=== PATIENT | female | born 1965 | race Two or more races ===

== ENCOUNTER → 2024-07-08 | Outpatient (CLI) | payer BC, SELFPAY ==
[2024-07-08 16:00] LABS: Basophils % (Auto) 0 % (0-2.5); Eosinophils # (Auto) 0.1 Thou/mm3 (0.0-0.5); Eosinophils % (Auto) 1 % (0-10); Hematocrit 32.9 % (36.0-46.0); Immature Granulocytes % (Auto) 0 % (0-0); Immature Granulocytes Auto 0.02 Thou/mm3 (0.00-0.00); Lymphocytes # (Auto) 0.9 Thou/mm3 (1.0-4.8); Lymphocytes % (Auto) 19 % (10-50); Mean Corpuscular HGB Conc 33.4 g/dl (31.0-37.0); Mean Corpuscular Hemoglobin 30.7 pg (25.0-35.0); Mean Corpuscular Volume 92 fL (80-100); Monocytes # (Auto) 0.4 Thou/mm3 (0.0-0.8); Monocytes % (Auto) 9 % (0-12); Neutrophils # (Auto) 3.5 Thou/mm3 (1.8-7.7); Neutrophils % (Auto) 71 % (37-80); Nucleated Red Blood Cell % 0 /100 WBC (0); Platelet Count 235 Thou/mm3 (140-440); RDW Standard Deviation 41.8 fL (36.4-46.3); Red Blood Count 3.58 Miln/mm3 (4.00-5.20); White Blood Count 4.9 Thou/mm3 (3.6-11.0)
[2024-07-08 16:14] LABS: Alanine Aminotransferase 19 U/L (10-49); Albumin, Serum 4.3 gm/dL (3.4-4.8); Albumin/Globulin Ratio 1.7 (1.2-2.2); Alkaline Phosphatase 85 U/L (46-116); Anion Gap 4 (7-16); Aspartate Amino Transferase 19 U/L (0-34); BUN/Creatinine Ratio 24 Ratio (12-20); Bilirubin,Total 1.1 mg/dL (0.3-1.2); Blood Urea Nitrogen 19 mg/dL (9-23); Calcium 9.5 mg/dL (8.3-10.6); Calcium (Corrected) 9.5 mg/dL (8.5-10.1); Carbon Dioxide 27.5 mMol/L (20.0-31.0); Chloride 108 mMol/L (98-107); Creatinine (Component) 0.8 mg/dL (0.6-1.3); Globulin 2.6 gm/dL (2.3-3.5); Glucose 98 mg/dL (74-106); Osmolality,Calculated 279 (275-295); Potassium 3.5 mMol/L (3.4-5.1); Sodium 139 mMol/L (136-145); Total Protein 6.9 gm/dL (5.7-8.2); eGFR > 60 See Note
[2024-07-08 16:17] LABS: Folate 13.45 ng/mL (>5.38); Vitamin B12 500 pg/mL (211-911)
[2024-07-08 16:34] LABS: Total Iron Binding Capacity 328 mcg/dL (250-425)
[2024-07-08 16:44] LABS: Iron 83 mcg/dL (50-170)
== END | disposition home or self-care (01) ==
LOC: COPL 15:07
PROVIDERS: PCP Family Medicine; Referring Provider Family Medicine; Visit Provider Family Medicine
DX: G62.9 Polyneuropathy, unspecified (principal)
CPT/HCPCS: 36415; 80053; 82607; 82746; 83540; 83550; 85025

== ENCOUNTER → 2024-08-10 | Outpatient (CLI) | payer BC, SELFPAY ==
--- NOTE | 2024-08-10 12:00 | XR_ITS ---
Examination: Bone densitometry Date and time of exam:August 10, 2024 1224 hours INDICATIONS: Menopause age 48 right shoulder fracture history uterine carcinoma post chemotherapy radiation therapy Technique: Lumbar spine and hip total bone mineralization values of an calculated. Peak reference and age match control results have been displayed. Findings: Lumbar spine total bone mineralization is0.976 gm/cm2. This is 0.6 standard deviations below peak reference. This is 0.8 standard deviations above age-matched controls. Hip total bone mineralization is 0.947 gm/cm2 This is 0.0 standard deviations at peak reference. This is 1.1 standard deviations above age-matched controls Impression: There is normal mineralization based on lumbar spine measurements. There is normal mineralization based on hip measurements Lumbar mineralization is decreased 2.9% compared with June 05, 2017 Hip mineralization is decreased 0.2% compared with June 05, 2017
== END | disposition home or self-care (01) ==
PROVIDERS: PCP Family Medicine; Referring Provider Family Medicine; Visit Provider Family Medicine
DX: Z13.820 Encounter for screening for osteoporosis (principal)
CPT/HCPCS: 77080

== ENCOUNTER 2024-10-19 15:34 | Outpatient (RCR) | payer BC, SELFPAY ==
[2024-10-18 16:24] LABS: Basophils % (Auto) 1 % (0-2.5); Eosinophils # (Auto) 0.1 Thou/mm3 (0.0-0.5); Eosinophils % (Auto) 2 % (0-10); Hematocrit 34.3 % (36.0-46.0); Hemoglobin 11.6 g/dL (12.0-16.0); Immature Granulocytes % (Auto) 1 % (0-0); Immature Granulocytes Auto 0.02 Thou/mm3 (0.00-0.00); Lymphocytes % (Auto) 24 % (10-50); Mean Corpuscular HGB Conc 33.8 g/dl (31.0-37.0); Mean Corpuscular Hemoglobin 29.7 pg (25.0-35.0); Mean Corpuscular Volume 88 fL (80-100); Monocytes # (Auto) 0.3 Thou/mm3 (0.0-0.8); Monocytes % (Auto) 7 % (0-12); Neutrophils # (Auto) 2.6 Thou/mm3 (1.8-7.7); Neutrophils % (Auto) 66 % (37-80); Nucleated Red Blood Cell % 0 /100 WBC (0); Platelet Count 199 Thou/mm3 (140-440); RDW Standard Deviation 42.3 fL (36.4-46.3); White Blood Count 3.9 Thou/mm3 (3.6-11.0)
[2024-10-18 16:45] LABS: Alanine Aminotransferase 21 U/L (10-49); Albumin, Serum 4.4 gm/dL (3.4-4.8); Albumin/Globulin Ratio 1.5 (1.2-2.2); Alkaline Phosphatase 100 U/L (46-116); Anion Gap 8 (7-16); Aspartate Amino Transferase 24 U/L (0-34); BUN/Creatinine Ratio 27 Ratio (12-20); Bilirubin,Total 1.2 mg/dL (0.3-1.2); Blood Urea Nitrogen 19 mg/dL (9-23); Calcium 9.6 mg/dL (8.3-10.6); Calcium (Corrected) 9.6 mg/dL (8.5-10.1); Chloride 107 mMol/L (98-107); Creatinine (Component) 0.7 mg/dL (0.6-1.3); Glucose 80 mg/dL (74-106); Osmolality,Calculated 282 (275-295); Potassium 3.6 mMol/L (3.4-5.1); Sodium 141 mMol/L (136-145); Total Protein 7.4 gm/dL (5.7-8.2); eGFR > 60 See Note
--- NOTE | 2024-10-31 15:41 | CTCFLWUP_ITS ---
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 Unfortunately Taxol was not given for last 2 cycles due to peripheral neuropathy (11/26/2023 - 03/11/2024). Ms. 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 pMMR, HER2 overexpressed 3+, ER/OK negative S/p hysterectomy and bilateral salpingo-oophorectomy (09/03/2023) TREATMENT HISTORY: Care?Plan Start?Date Cycle Day Intent CARBOplatin?AUC?6;?PACLitaxel?175 11/26/2023 1 21 Curative?(adjuvant) HISTORY OF PRESENT ILLNESS: Ms. Schneider is a 59-year-old Danish-speaking female with following oncology history. 06/11/2023: Ms. Schneider had pelvic ultrasound done to evaluate the cause for postmenopausal bleeding 08/08/2023: Ms. Schneider had endometrial biopsy? 08/28/2023: CT scan of the chest abdomen and pelvis with IV contrast 09/03/2023: Ms. Schneider had total hysterectomy and bilateral salpingo-oophorectomy 10/20/2023: PET/CT scan 11/26/2023?03/11/2024: The patient had 6 cycles of adjuvant chemotherapy. For first 4 cycles she had Taxol and carboplatin. Taxol was not given for last 2 cycles due to peripheral neuropathy.. 03/29/2024 - 05/03/2024: Ms. Schneider received 5000 cGy of radiation therapy to the pelvis. 04/09/2024: CA125 is 12.0 05/10/2024: CT scan of the chest with contrast OTHER MEDICAL HISTORY/CONDITIONS: UTRINE?CA???COVID HYSTRECTOMY???ROTATOR?CUFF ?Clone Other Med Hx? FAMILY HISTORY: Mother:?COLON?-?dx?age?74 Sibling:?BREAST?SISTER ?Clone Family Hx? SOCIAL HISTORY: Occupational?History:?[employer]. Education?Level:?College Graduate, 2 year degree Marital?Status:? 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 MEDICATIONS: 1. Antifungal (clotrimazole) - 1 % 5 mg APPLY DIALY OVER AFFECTED AREAS 2. gabapentin - 300 mg 1 Capsule Daily 3. IBU - 800 mg 1 tab As directed 4. prednisoLONE - 5 mg 1 tab Daily?Palabra Meds? Medications Last Reconciled by Nancy Ochoa MA on 10/19/2024 ALLERGIES: No Known Drug Allergies REVIEW OF SYSTEMS: A complete 14-point review of systems was performed and is negative except as noted in interval history. PHYSICAL EXAMINATION: VITAL SIGNS: Temperature?98.2, B/P?130/82, Oxygen?Saturation?95% Weight?162?lbs (Change?since?10/18/24:?-3.2?lbs) PAIN: 0 - No pain ECOG Performance Status: 0 - Asymptomatic and fully active GENERAL APPEARANCE: Appears well, in no apparent distress, appropriately interactive. HEENT: Normocephalic, no temporal wasting, normal conjunctiva, no scleral icterus, normal hearing, lips without lesions, neck normal range of motion. CARDIOVASCULAR: Not assessed. PULMONARY: Normal respiratory effort, no respiratory distress or use of accessory muscles, speaking in full sentences, no tachypnea. EXTREMITIES: No pedal edema or cyanosis. SKIN: Normal skin appearance. NEUROLOGIC: Alert and oriented x4. PSHYCHIATRIC: Appropriate affect, mood normal, behavior normal, intact thought and speech. LABORATORY DATA: I have personally reviewed and interpreted each of the patient?s relevant lab tests, abnormal findings are below: Date 07/08/24 10/18/24 ??WHITE?BLOOD?COUNT?(Thou/mm3) ? 3.9 ??RED?BLOOD?COUNT?(Miln/mm3) ? 3.90?L ??HEMOGLOBIN?(gm/dl) ? 11.6?L ??HEMATOCRIT?(%) ? 34.3?L ??PLATELET?COUNT?(Thou/mm3) ? 199 ??NEUTROPHILS?%,?AUTO?(%) ? 66 ??LYMPH?%,?AUTO?(%) ? 24 ??NEUTROPHILS,?AUTO?(Thou/mm3) ? 2.6 ??GLUCOSE,RANDOM?(mg/dL) 98 80 ??BLOOD?UREA?NITROGEN?(mg/dL) 19 19 ??CREATININE?(mg/dL) 0.80 0.70 ??SODIUM?(mmol/L) 139 141 ??POTASSIUM?(mmol/L) 3.5 3.6 ??CHLORIDE?(mmol/L) 108?H 107 ??CrCl?(CandG)?(ml/min) 71.68 83.18 ??AST/SGOT?(Unit/L) 19 24 ??ALT/SGPT?(Unit/L) 19 21 ??ALKALINE?PHOSPHATASE?(Unit/L) 85 100 ??BILIRUBIN,?TOTAL?(mg/dL) 1.1 1.2 ??PROTEIN?TOTAL?(gm/dl) 6.9 7.4 ??ALBUMIN,?SERUM?(gm/dl) 4.3 4.4 ??GLOBULIN?(gm/dl) 2.6 3.0 ??ALBUMIN/GLOBULIN?RATIO 1.7 1.5 ??CALCIUM,?SERUM?(mg/dL) 9.5 9.6 ??CALCIUM?SERUM?(CORRECTED)?(mg/dL) 9.5 9.6 ??CA?125?(O*)?(Unit/mL) ? 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 pMMR, HER2 overexpressed 3+, ER/OK negative S/p hysterectomy and bilateral salpingo-oophorectomy (09/03/2023) Status post 6 cycles of Taxol and carboplatin chemotherapy. Unfortunately Taxol was not given for last 2 cycles due to peripheral neuropathy (11/26/2023 - 03/11/2024). Ms. Schneider had 5000 cGy radiation to the pelvis (03/29/2024 - 05/03/2024) Previous CT scans done on 08/28/2023 showed multiple small pulmonary nodules CT scan on 05/10/2024 shows bilateral lungs clear and showed fatty liver infiltration and benign hepatic cyst but no cancer seen CBC CMP CT scan chest abdomen pelvis with IV contrast to evaluate for recurrence RETURN TO CLINIC: I will see her back in the clinic in 2 months. BILLING AND COMPLIANCE: I reviewed external records from providers outside my specialty as summarized above. I spent a total of 50 minutes on this patient?s care on the day of their visit excluding time spent related to any billed procedures. This time includes time spent with the patient as well as time spent documenting in the medical record, reviewing patients records and tests, obtaining history, placing orders, communicating with other healthcare professionals, counseling the patient, family or caregiver, and/or care coordination for the diagnoses above. Electronically Signed by: Evgeny Conner MD T: 3:39 PM CC: PCP: Sita Mack Referring: Sita Mack This document was completed utilizing speech recognition software. Grammatical errors, random word insertions, pronoun errors, and incomplete sentences are an occasional consequence of this system due to software limitations, ambient noise, and hardware issues. Any formal questions or concerns about the content, text or information contained within the body of this dictation should be directly addressed to the provider for clarification.
== END 2024-10-22 23:59 | disposition home or self-care (01) ==
LOC: SCTC 15:34
PROVIDERS: PCP Family Medicine; Referring Provider Family Medicine; Visit Provider Internal Medicine Hematology & Oncology
DX: C54.1 Malignant neoplasm of endometrium (principal); Z90.710 Acquired absence of both cervix and uterus; Z90.722 Acquired absence of ovaries, bilateral; Z92.3 Personal history of irradiation; K76.0 Fatty (change of) liver, not elsewhere classified; K76.89 Other specified diseases of liver
CPT/HCPCS: 36591; 80053; 85025; 86304; 99212; A4216; J1642; G0463

== ENCOUNTER → 2024-11-03 | Outpatient (CLI) | payer BC, SELFPAY ==
--- NOTE | 2024-11-03 15:00 | XR_ITS ---
Examination: CT chest with intravenous contrast CT abdomen with intravenous contrast CT pelvis with intravenous contrast CT chest without intravenous contrast CTA abdomen without intravenous contrast CT of orbits without intravenous contrast 2-D coronal and sagittal reconstructions Time of exam: November 03, 2024 1557 hrs. Comparison: No prior CT examinations for comparison Indications: Diagnosis malignant neoplasm of uterus August 2022 surgery August 2023, staging CTDI: vol (mGy) : 27 DLP: (mGycm): 1217 Technique: Multiple axial images of the chest, abdomen and pelvis with intravenous contrast, 3.0 mm slice thickness. Images obtained post intravenous injection Isovue 370 60 cc. 2-D sagittal and coronal reconstructions. Low dose protocols were performed. One or more of the following dose reduction techniques were used; automated exposure control, adjustment of the mA and/or KV according to patient size, use of iterative reconstruction technique. Findings: No thoracic aortic aneurysm dilatation No pulmonary artery filling defects No paratracheal tracheobronchial or bronchopulmonary adenopathy 29 bilateral pulmonary nodules ranging in size from 3 to 11 mm Liver cysts, the largest 4.8 cm Tiny gallstones Spleen not enlarged No pancreatic or adrenal mass No renal or ureteral calculi, no hydronephrosis Subcentimeter periaortic lymph nodes, the largest 7 mm 10 mm left common iliac lymph node Absent uterus Urinary bladder intact No adnexal mass Moderate osteopenia Impression: 29 mm bilateral pulmonary nodules ranging in size from 3 to 11 mm Cholelithiasis Subcentimeter para-aortic lymph nodes, the largest 7 mm 10 mm left common iliac lymph nodes
== END | disposition home or self-care (01) ==
PROVIDERS: PCP Family Medicine; Referring Provider Internal Medicine Hematology & Oncology; Visit Provider Internal Medicine Hematology & Oncology
DX: R91.8 Other nonspecific abnormal finding of lung field (principal); K80.20 Calculus of gallbladder without cholecystitis without obstruction; C55 Malignant neoplasm of uterus, part unspecified
CPT/HCPCS: 71270; 74178; A4649; Q9967

== ENCOUNTER 2024-11-09 13:25 | Outpatient (RCR) | payer BC, SELFPAY ==
--- NOTE | 2024-11-09 14:21 | CTCFLWUP_ITS ---
[facility] [address] [place], [place] [address] FOLLOW-UP NOTE Date: 11/09/2024 MR#: [id number] Name: TON MCGEE : 1965 Dx: C55 Malignant neoplasm of uterus, part unspecified Identification. Patient with stage Ib endometrial CA serous type with extensive lymphatic and vascular invasion. Surgery performed 09/03/2022. Completed 6 cycles of Taxol carboplatin, last 2 cycles Taxol held due to peripheral neuropathy. Completed 5000 cGy to pelvis 05/03/2024. Completed CT chest abdomen pelvis 11/03/2024 revealing multiple bilateral pulmonary nodules ranging in size from 3 to 11 mm. There are also subcentimeter para-aortic lymph nodes largest 7 mm. There was also 10 mm left common iliac lymph nodes. These are borderline size for biopsy. Spoke to patient about getting PET scan which was done at [facility] previously performed 10/20/2023 which showed no abnormal metabolic activity. Scheduled for follow-up in 2 months. Also has follow-up with Dr. Conner in about 6 weeks. Electronically signed by: Stevenson Conteh M.D. 11/09/2024 2:18 PM
== END 2024-11-22 23:59 | disposition home or self-care (01) ==
LOC: SCTC 13:25
PROVIDERS: PCP Family Medicine; Referring Provider Family Medicine; Visit Provider Radiology Therapeutic Radiology
DX: C55 Malignant neoplasm of uterus, part unspecified (principal); R91.8 Other nonspecific abnormal finding of lung field; R59.0 Localized enlarged lymph nodes; G62.9 Polyneuropathy, unspecified
CPT/HCPCS: 99213; G0463

== ENCOUNTER 2024-12-22 10:56 | Outpatient (RCR) | payer BC, SELFPAY ==
[2024-12-22 11:41] LABS: Basophils % (Auto) 1 % (0-2.5); Eosinophils # (Auto) 0.1 Thou/mm3 (0.0-0.5); Eosinophils % (Auto) 2 % (0-10); Hematocrit 34.4 % (36.0-46.0); Immature Granulocytes % (Auto) 0 % (0-0); Immature Granulocytes Auto 0.02 Thou/mm3 (0.00-0.00); Lymphocytes # (Auto) 1.2 Thou/mm3 (1.0-4.8); Lymphocytes % (Auto) 26 % (10-50); Mean Corpuscular HGB Conc 34.9 g/dl (31.0-37.0); Mean Corpuscular Hemoglobin 30.5 pg (25.0-35.0); Mean Corpuscular Volume 87 fL (80-100); Monocytes # (Auto) 0.4 Thou/mm3 (0.0-0.8); Monocytes % (Auto) 8 % (0-12); Neutrophils # (Auto) 3.1 Thou/mm3 (1.8-7.7); Neutrophils % (Auto) 64 % (37-80); Nucleated Red Blood Cell % 0 /100 WBC (0); Platelet Count 237 Thou/mm3 (140-440); RDW Standard Deviation 40.7 fL (36.4-46.3); Red Blood Count 3.94 Miln/mm3 (4.00-5.20); White Blood Count 4.8 Thou/mm3 (3.6-11.0)
[2024-12-22 12:06] LABS: Alanine Aminotransferase 15 U/L (10-49); Albumin, Serum 4.2 gm/dL (3.4-4.8); Albumin/Globulin Ratio 1.5 (1.2-2.2); Alkaline Phosphatase 99 U/L (46-116); Anion Gap 8 (7-16); Aspartate Amino Transferase 18 U/L (0-34); BUN/Creatinine Ratio 24 Ratio (12-20); Bilirubin,Total 1.3 mg/dL (0.3-1.2); Blood Urea Nitrogen 17 mg/dL (9-23); Calcium 9.3 mg/dL (8.3-10.6); Calcium (Corrected) 9.3 mg/dL (8.5-10.1); Carbon Dioxide 28.2 mMol/L (20.0-31.0); Chloride 108 mMol/L (98-107); Creatinine (Component) 0.7 mg/dL (0.6-1.3); Globulin 2.8 gm/dL (2.3-3.5); Glucose 91 mg/dL (74-106); Osmolality,Calculated 288 (275-295); Potassium 3.8 mMol/L (3.4-5.1); Sodium 144 mMol/L (136-145); eGFR > 60 See Note
== END 2024-12-22 23:59 | disposition home or self-care (01) ==
LOC: SCTC 10:56
PROVIDERS: Internal Medicine Hematology & Oncology; PCP Family Medicine; Referring Provider Family Medicine; Visit Provider Radiology Therapeutic Radiology
DX: C54.1 Malignant neoplasm of endometrium (principal); Z92.3 Personal history of irradiation; R91.8 Other nonspecific abnormal finding of lung field
CPT/HCPCS: 36591; 80053; 85025; 86304; A4216; J1642

== ENCOUNTER 2025-01-19 07:32 | Outpatient (RCR) | payer BC, SELFPAY ==
--- NOTE | 2024-12-27 06:27 | CTCFLWUP_ITS ---
Patient: TON SCHNEIDER : 1965 Page 7 of 8 FOLLOW UP NOTE DATE OF SERVICE: 12/23/2024 NAME: TON SCHNEIDER ACCOUNT: [id number] : 1965 AGE: 59 INTERVAL HISTORY: Ton SCHNEIDER, a female with uterine cancer diagnosed July 2023, presented for follow-up of PET scan results. Her history included stage 1 cancer with complete surgical resection via hysterectomy. Current imaging revealed metastatic disease with multiple lung nodules showing mildly increased activity (largest 11mm) and two avid alfonso lesions in left pelvic sidewalls. Plan includes senior asic design engineer referral for pelvic lesion biopsy, possible interventional radiology consultation, Natira liquid biopsy, and follow-up in 4 weeks. Chief Complaint Follow-up for malignant neoplasm of the uterus and metastatic disease, review of PET scan results History of Present Illness Ton SCHNEIDER is a patient with a history of malignant neoplasm of the uterus, diagnosed in July 2023. She presents for follow-up after recent imaging studies to evaluate for metastatic disease. The patient's initial cancer was stage one, and everything was removed at that time. However, recent imaging studies have raised concerns about potential metastatic disease. A CT scan in October showed 29-millimeter nodules, which prompted a PET scan. The PET scan revealed multiple nodules in both lungs demonstrating mildly increased activity. The largest nodule in the right lung measures 11 millimeters, located in the superior right lower lobe adjacent to the major fissure. Additionally, there are two avid alfonso lesions in the left pelvic sidewalls, consistent with metastasis. The patient's CA125 test was reported as normal. There have been no specific symptoms mentioned related to these findings. The impact on the patient's daily functioning and any associated symptoms have not been discussed in the provided information. 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 pMMR, HER2 overexpressed 3+, ER/NV negative S/p hysterectomy and bilateral salpingo-oophorectomy (09/03/2023) Status post 6 cycles of Taxol and carboplatin chemotherapy. Unfortunately Taxol was not given for last 2 cycles due to peripheral neuropathy (11/26/2023 - 03/11/2024). Ms. 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 pMMR, HER2 overexpressed 3+, ER/NV negative S/p hysterectomy and bilateral salpingo-oophorectomy (09/03/2023) TREATMENT HISTORY: Care?Plan Start?Date Cycle Day Intent CARBOplatin?AUC?6;?PACLitaxel?175 11/26/2023 1 21 Curative?(adjuvant) HISTORY OF PRESENT ILLNESS: Ms. Schneider is a 59-year-old Fijian-speaking female with following oncology history. 06/11/2023: Ms. Schneider had pelvic ultrasound done to evaluate the cause for postmenopausal bleeding 08/08/2023: Ms. Schneider had endometrial biopsy? 08/28/2023: CT scan of the chest abdomen and pelvis with IV contrast 09/03/2023: Ms. Schneider had total hysterectomy and bilateral salpingo-oophorectomy 10/20/2023: PET/CT scan 11/26/2023?03/11/2024: The patient had 6 cycles of adjuvant chemotherapy. For first 4 cycles she had Taxol and carboplatin. Taxol was not given for last 2 cycles due to peripheral neuropathy.. 03/29/2024 - 05/03/2024: Ms. Schneider received 5000 cGy of radiation therapy to the pelvis. 04/09/2024: CA125 is 12.0 05/10/2024: CT scan of the chest with contrast OTHER MEDICAL HISTORY/CONDITIONS: UTRINE?CA???COVID HYSTRECTOMY???ROTATOR?CUFF FAMILY HISTORY: Mother:?COLON?-?dx?age?74 Sibling:?BREAST?SISTER SOCIAL HISTORY: Occupational?History:?[employer]. Education?Level:?College Graduate, 2 year degree Marital?Status:? 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 IBU - 800 mg 1 tab As directed Medications Last Reconciled by Sita Bonds MA on 12/23/2024 ALLERGIES: No Known Drug Allergies REVIEW OF SYSTEMS: A complete 14-point review of systems was performed and is negative except as noted in interval history. PHYSICAL EXAMINATION: VITAL SIGNS: Temperature?97.1, B/P?124/77, Oxygen?Saturation?95% Weight?164?lbs (Change?since?12/22/24:?-1?lbs) PAIN: 0 - No pain ECOG Performance Status: 0 - Asymptomatic and fully active GENERAL APPEARANCE: Appears well, in no apparent distress, appropriately interactive. HEENT: Normocephalic, no temporal wasting, normal conjunctiva, no scleral icterus, normal hearing, lips without lesions, neck normal range of motion. CARDIOVASCULAR: Not assessed. PULMONARY: Normal respiratory effort, no respiratory distress or use of accessory muscles, speaking in full sentences, no tachypnea. EXTREMITIES: No pedal edema or cyanosis. SKIN: Normal skin appearance. NEUROLOGIC: Alert and oriented x4. PSHYCHIATRIC: Appropriate affect, mood normal, behavior normal, intact thought and speech. LABORATORY DATA: I have personally reviewed and interpreted each of the patient?s relevant lab tests, abnormal findings are below: Date 10/18/24 12/22/24 ??WHITE?BLOOD?COUNT?(Thou/mm3) ? 4.8 ??RED?BLOOD?COUNT?(Miln/mm3) ? 3.94?L ??HEMOGLOBIN?(gm/dl) ? 12.0 ??HEMATOCRIT?(%) ? 34.4?L ??PLATELET?COUNT?(Thou/mm3) ? 237 ??NEUTROPHILS?%,?AUTO?(%) ? 64 ??LYMPH?%,?AUTO?(%) ? 26 ??NEUTROPHILS,?AUTO?(Thou/mm3) ? 3.1 ??GLUCOSE,RANDOM?(mg/dL) 80 91 ??BLOOD?UREA?NITROGEN?(mg/dL) 19 17 ??CREATININE?(mg/dL) 0.70 0.70 ??SODIUM?(mmol/L) 141 144 ??POTASSIUM?(mmol/L) 3.6 3.8 ??CHLORIDE?(mmol/L) 107 108?H ??CrCl?(CandG)?(ml/min) 83.18 83.13 ??AST/SGOT?(Unit/L) 24 18 ??ALT/SGPT?(Unit/L) 21 15 ??ALKALINE?PHOSPHATASE?(Unit/L) 100 99 ??BILIRUBIN,?TOTAL?(mg/dL) 1.2 1.3?H ??PROTEIN?TOTAL?(gm/dl) 7.4 7.0 ??ALBUMIN,?SERUM?(gm/dl) 4.4 4.2 ??GLOBULIN?(gm/dl) 3.0 2.8 ??ALBUMIN/GLOBULIN?RATIO 1.5 1.5 ??CALCIUM,?SERUM?(mg/dL) 9.6 9.3 ??CALCIUM?SERUM?(CORRECTED)?(mg/dL) 9.6 9.3 ??CA?125?(O*)?(Unit/mL) ? 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 pMMR, HER2 overexpressed 3+, ER/NV negative S/p hysterectomy and bilateral salpingo-oophorectomy (09/03/2023) Status post 6 cycles of Taxol and carboplatin chemotherapy. Unfortunately Taxol was not given for last 2 cycles due to peripheral neuropathy (11/26/2023 - 03/11/2024). Ms. Schneider had 5000 cGy radiation to the pelvis (03/29/2024 - 05/03/2024) Previous CT scans done on 08/28/2023 showed multiple small pulmonary nodules CT scan on 05/10/2024 shows bilateral lungs clear and showed fatty liver infiltration and benign hepatic cyst but no cancer seen Ton SCHNEIDER, female patient with history of uterine cancer diagnosed in July 2023, presenting for follow-up of recent PET scan results showing metastatic disease. Metastatic uterine cancer Assessment: Patient was diagnosed with uterine cancer in July 2023, initially stage 1 with complete surgical resection. Recent PET scan reveals metastatic disease with multiple nodules in both lungs demonstrating mildly increased activity. The largest nodule measures 11 mm in the superior segment of the right lower lobe. Two avid alfonso lesions in the left pelvic sidewalls are consistent with metastasis. An indeterminate 6 mm node in the right upper neck at level C-2 was noted, possibly reactive. CA125 test was normal. The metastatic spread is concerning, particularly the pelvic lesions, which require further investigation. Plan: - Refer patient to senior asic design engineer for biopsy of pelvic lesions - If senior asic design engineer unable to reach lesions, consult interventional radiology in [place] for biopsy - Recommend Natira testing (liquid biopsy) for cancer detection - Provide patient with copy of PET scan reading - Schedule follow-up appointment in 4 weeks to review biopsy results - Nurses to print out PET scan reading for patient ORDERS: Order # Description [id number] Comprehensive Metabolic Panel - 12 + CBC with Auto Diff + CA [id number] Scan + Chest + Abdomen and Pelvis + With W/O Contrast RETURN TO CLINIC: BILLING AND COMPLIANCE: I reviewed external records from providers outside my specialty as summarized above. I spent a total of 50 minutes on this patient?s care on the day of their visit excluding time spent related to any billed procedures. This time includes time spent with the patient as well as time spent documenting in the medical record, reviewing patients records and tests, obtaining history, placing orders, communicating with other healthcare professionals, counseling the patient, family or caregiver, and/or care coordination for the diagnoses above. Electronically Signed by: {Object.Sanct_ID*[email or web address]@M}, {Object.Sanct_ID*PnP.Suffix@U} D: {Object.Sanct_Date} T: {Object.Sanct_Time} CC: PCP: Evgeny Conner Referring: Evgeny Conner This document was completed utilizing speech recognition software. Grammatical errors, random word insertions, pronoun errors, and incomplete sentences are an occasional consequence of this system due to software limitations, ambient noise, and hardware issues. Any formal questions or concerns about the content, text or information contained within the body of this dictation should be directly addressed to the provider for clarification.
== END 2025-01-22 23:59 | disposition home or self-care (01) ==
LOC: SCTC 07:32
PROVIDERS: PCP Family Medicine; Referring Provider Internal Medicine Hematology & Oncology; Visit Provider Internal Medicine Hematology & Oncology
DX: C54.1 Malignant neoplasm of endometrium (principal); Z90.710 Acquired absence of both cervix and uterus; Z90.722 Acquired absence of ovaries, bilateral; Z71.2 Person consulting for explanation of examination or test findings; Z92.3 Personal history of irradiation; R91.8 Other nonspecific abnormal finding of lung field; N94.89 Other specified conditions associated with female genital organs and menstrual cycle
CPT/HCPCS: 36591; 99212; A4216; J1642; G0463

== ENCOUNTER 2025-04-21 08:27 | Outpatient (RCR) | payer BC, SELFPAY ==
[2025-03-30 08:54] LABS: Basophils # (Auto) 0.0 Thou/mm3 (0.0-0.2); Basophils % (Auto) 1 % (0-2.5); Eosinophils # (Auto) 0.1 Thou/mm3 (0.0-0.5); Eosinophils % (Auto) 2 % (0-10); Hematocrit 35.5 % (36.0-46.0); Hemoglobin 11.7 g/dL (12.0-16.0); Immature Granulocytes Auto 0.01 Thou/mm3 (0.00-0.00); Lymphocytes # (Auto) 1.1 Thou/mm3 (1.0-4.8); Lymphocytes % (Auto) 18 % (10-50); Mean Corpuscular HGB Conc 33.0 g/dl (31.0-37.0); Mean Corpuscular Hemoglobin 29.8 pg (25.0-35.0); Mean Corpuscular Volume 90 fL (80-100); Monocytes # (Auto) 0.5 Thou/mm3 (0.0-0.8); Monocytes % (Auto) 8 % (0-12); Neutrophils # (Auto) 4.2 Thou/mm3 (1.8-7.7); Neutrophils % (Auto) 71 % (37-80); Nucleated Red Blood Cell # 0.00 Thou/mm3 (0.00-0.00); Nucleated Red Blood Cell % 0 /100 WBC (0); Platelet Count 231 Thou/mm3 (140-440); RDW Standard Deviation 43.8 fL (36.4-46.3); Red Blood Count 3.93 Miln/mm3 (4.00-5.20); White Blood Count 5.9 Thou/mm3 (3.6-11.0)
[2025-03-30 09:17] LABS: Alanine Aminotransferase 21 U/L (10-49); Albumin, Serum 4.2 gm/dL (3.4-4.8); Albumin/Globulin Ratio 1.6 (1.2-2.2); Alkaline Phosphatase 97 U/L (46-116); Anion Gap 11 (7-16); Aspartate Amino Transferase 20 U/L (0-34); BUN/Creatinine Ratio 17 Ratio (12-20); Bilirubin,Total 1.3 mg/dL (0.3-1.2); Blood Urea Nitrogen 19 mg/dL (9-23); Calcium 9.0 mg/dL (8.3-10.6); Calcium (Corrected) 9.0 mg/dL (8.5-10.1); Carbon Dioxide 25.0 mMol/L (20.0-31.0); Chloride 106 mMol/L (98-107); Creatinine (Component) 1.1 mg/dL (0.6-1.3); Globulin 2.6 gm/dL (2.3-3.5); Glucose 108 mg/dL (74-106); Osmolality,Calculated 286 (275-295); Potassium 3.7 mMol/L (3.4-5.1); Sodium 142 mMol/L (136-145); Total Protein 6.8 gm/dL (5.7-8.2); Uric Acid 5.2 mg/dL (3.1-7.8); eGFR 57 See Note
[2025-03-30 09:24] LABS: CA 125 10.0 U/mL (<30.2)
--- NOTE | 2025-04-03 18:39 | CTCFLWUP_ITS ---
Patient: TON MCGEE : 1965 Page 5 of 7 FOLLOW UP NOTE DATE OF SERVICE: 03/31/2025 NAME: TON MCGEE ACCOUNT: [id number] : 1965 AGE: 59 INTERVAL HISTORY: Ton MCGEE, a female with uterine cancer diagnosed July 2023, presented for follow-up of PET scan results. Her history included stage 1 cancer with complete surgical resection via hysterectomy. Current imaging revealed metastatic disease with multiple lung nodules showing mildly increased activity (largest 11mm) and two avid alfonso lesions in left pelvic sidewalls. Biopsy is negative for malignancy . lung nodules are too small to biopsy . Patient s naterra is positive . will repeat scan and biopsy lung noduels if they grow. Patient do not want to repeat biopsy of the pelvic mass. [place] patient that she likely have cancer as naterra is showing increase in her tumor marker . Chief Complaint Follow-up for malignant neoplasm of the uterus and metastatic disease, review of PET scan results History of Present Illness Ton MCGEE is a patient with a history of malignant neoplasm of the uterus, diagnosed in July 2023. She presents for follow-up after recent imaging studies to evaluate for metastatic disease. The patient's initial cancer was stage one, and everything was removed at that time. However, recent imaging studies have raised concerns about potential metastatic disease. A CT scan in October showed 29-millimeter nodules, which prompted a PET scan. The PET scan revealed multiple nodules in both lungs demonstrating mildly increased activity. The largest nodule in the right lung measures 11 millimeters, located in the superior right lower lobe adjacent to the major fissure. Additionally, there are two avid alfonso lesions in the left pelvic sidewalls, consistent with metastasis. Pelvic mass biopsied and s negative Medical History - Malignant neoplasm of the uterus diagnosed in July 2023 - Stage one cancer, with complete removal Surgical History - Total hysterectomy in July 2023 for stage one uterine cancer ONCOLOGY HISTORY:?[facility] Hx? 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 Unfortunately Taxol was not given for last 2 cycles due to peripheral neuropathy (11/26/2023 - 03/11/2024). Ms. 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 Mcgee is a 59-year-old Greenlandic-speaking female with following oncology history. 06/11/2023: Ms. Mcgee had pelvic ultrasound done to evaluate the cause for postmenopausal bleeding 08/08/2023: Ms. Mcgee had endometrial biopsy? 08/28/2023: CT scan of the chest abdomen and pelvis with IV contrast 09/03/2023: Ms. Mcgee had total hysterectomy and bilateral salpingo-oophorectomy 10/20/2023: PET/CT scan 11/26/2023?03/11/2024: The patient had 6 cycles of adjuvant chemotherapy. For first 4 cycles she had Taxol and carboplatin. Taxol was not given for last 2 cycles due to peripheral neuropathy.. 03/29/2024 - 05/03/2024: Ms. Mcgee received 5000 cGy of radiation therapy to the pelvis. 04/09/2024: CA125 is 12.0 05/10/2024: CT scan of the chest with contrast OTHER MEDICAL HISTORY/CONDITIONS: UTRINE?CA???COVID HYSTRECTOMY???ROTATOR?CUFF FAMILY HISTORY: Mother:?COLON?-?dx?age?74 Sibling:?BREAST?SISTER SOCIAL HISTORY: Occupational?History:?[employer]. Education?Level:?College Graduate, 2 year degree Marital?Status:? Tobacco?Pack?per?Day:?0 ETOH?Use:?DENIES Drug?Note:?DENIES Social History Note:?LIVES WITH DAUGHTER [place] PERSON HISTORY: Menarche?-?Age:?10 Menopause:?10?YRS?AGO Hormone?Use:?DENIES :?3 Live?Births:?1 Age?1st?:?19 Gynecological?Note:?2?MISCARRIAGE MEDICATIONS: 1. IBU - 800 mg 1 tab As directed?[facility] Meds? Medications Last Reconciled by Sita Bonds MA on 03/31/2025 ALLERGIES: No Known Drug Allergies REVIEW OF SYSTEMS: A complete 14-point review of systems was performed and is negative except as noted in interval history. PHYSICAL EXAMINATION:?[facility] PE? VITAL SIGNS: Temperature?99.7, B/P?134/84, Oxygen?Saturation?96% PAIN: 0 - No pain ECOG Performance Status: 0 - Asymptomatic and fully active GENERAL APPEARANCE: Appears well, in no apparent distress, appropriately interactive. HEENT: Normocephalic, no temporal wasting, normal conjunctiva, no scleral icterus, normal hearing, lips without lesions, neck normal range of motion. CARDIOVASCULAR: Not assessed. PULMONARY: Normal respiratory effort, no respiratory distress or use of accessory muscles, speaking in full sentences, no tachypnea. EXTREMITIES: No pedal edema or cyanosis. SKIN: Normal skin appearance. NEUROLOGIC: Alert and oriented x4. PSHYCHIATRIC: Appropriate affect, mood normal, behavior normal, intact thought and speech. LABORATORY DATA: I have personally reviewed and interpreted each of the patient?s relevant lab tests, abnormal findings are below: Date 12/22/24 03/30/25 ??WHITE?BLOOD?COUNT?(Thou/mm3) ? 5.9 ??RED?BLOOD?COUNT?(Miln/mm3) ? 3.93?L ??HEMOGLOBIN?(gm/dl) ? 11.7?L ??HEMATOCRIT?(%) ? 35.5?L ??PLATELET?COUNT?(Thou/mm3) ? 231 ??NEUTROPHILS?%,?AUTO?(%) ? 71 ??LYMPH?%,?AUTO?(%) ? 18 ??NEUTROPHILS,?AUTO?(Thou/mm3) ? 4.2 ??GLUCOSE,RANDOM?(mg/dL) 91 108?H ??BLOOD?UREA?NITROGEN?(mg/dL) 17 19 ??CREATININE?(mg/dL) 0.70 1.10 ??SODIUM?(mmol/L) 144 142 ??POTASSIUM?(mmol/L) 3.8 3.7 ??CHLORIDE?(mmol/L) 108?H 106 ??CrCl?(CandG)?(ml/min) 83.13 53.09 ??AST/SGOT?(Unit/L) 18 20 ??ALT/SGPT?(Unit/L) 15 21 ??ALKALINE?PHOSPHATASE?(Unit/L) 99 97 ??BILIRUBIN,?TOTAL?(mg/dL) 1.3?H 1.3?H ??PROTEIN?TOTAL?(gm/dl) 7.0 6.8 ??ALBUMIN,?SERUM?(gm/dl) 4.2 4.2 ??GLOBULIN?(gm/dl) 2.8 2.6 ??ALBUMIN/GLOBULIN?RATIO 1.5 1.6 ??CALCIUM,?SERUM?(mg/dL) 9.3 9.0 ??CALCIUM?SERUM?(CORRECTED)?(mg/dL) 9.3 9.0 ??CA?125?(O*)?(Unit/mL) ? 10.0 ASSESSMENT/PLAN:?Wei Conner Assessment/Plan? 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 Unfortunately Taxol was not given for last 2 cycles due to peripheral neuropathy (11/26/2023 - 03/11/2024). Ms. Mcgee had 5000 cGy radiation to the pelvis (03/29/2024 - 05/03/2024) Previous CT scans done on 08/28/2023 showed multiple small pulmonary nodules CT scan on 05/10/2024 shows bilateral lungs clear and showed fatty liver infiltration and benign hepatic cyst but no cancer seen Ton MCGEE, female patient with history of uterine cancer diagnosed in July 2023, presenting for follow-up of recent PET scan results showing metastatic disease. Metastatic uterine cancer Assessment: Patient was diagnosed with uterine cancer in July 2023, initially stage 1 with complete surgical resection. Recent PET scan reveals metastatic disease with multiple nodules in both lungs demonstrating mildly increased activity. The largest nodule measures 11 mm in the superior segment of the right lower lobe. Two avid alfonso lesions in the left pelvic sidewalls are consistent with metastasis. An indeterminate 6 mm node in the right upper neck at level C-2 was noted, possibly reactive. CA125 test was normal. The metastatic spread is concerning, particularly the pelvic lesions, which require further investigation. Biopsy results discussed Repeat scna for chest ordered Patient do not want to start treatment until we have confirmed tissue diagnosis Will repeat scan and biopsy nodule in lung RTC after next scan in 2 months ORDERS: Order # Description [id number] Comprehensive Metabolic Panel - 12 + CBC with Auto Diff + CA [id number] Scan + Chest + Abdomen and Pelvis + With W/O Contrast RETURN TO CLINIC: I reviewed the diagnosis, prognosis, and recommended treatment/procedure options with the patient (and/or their legal aircraft sales representative), including the potential benefits, risks, side effects and alternative therapies. We also discussed the option of no treatment and the possibility of clinical trial participation, if applicable. All questions were addressed, and they demonstrated understanding. They provided informed consent to proceed with the proposed plan of care. BILLING AND COMPLIANCE: I reviewed external records from providers outside my specialty as summarized above. I spent a total of 50 minutes on this patient?s care on the day of their visit excluding time spent related to any billed procedures. This time includes time spent with the patient as well as time spent documenting in the medical record, reviewing patients records and tests, obtaining history, placing orders, communicating with other healthcare professionals, counseling the patient, family or caregiver, and/or care coordination for the diagnoses above. Electronically Signed by: Evgeny Conner MD T: 6:37 PM CC: PCP: Sita Mack Referring: Sita Mack This document was completed utilizing speech recognition software. Grammatical errors, random word insertions, pronoun errors, and incomplete sentences are an occasional consequence of this system due to software limitations, ambient noise, and hardware issues. Any formal questions or concerns about the content, text or information contained within the body of this dictation should be directly addressed to the provider for clarification.
== END 2025-04-24 23:59 | disposition home or self-care (01) ==
LOC: SCTC 08:27
PROVIDERS: PCP Family Medicine; Referring Provider Family Medicine; Visit Provider Internal Medicine Hematology & Oncology
DX: C54.1 Malignant neoplasm of endometrium (principal); Z90.710 Acquired absence of both cervix and uterus; Z90.722 Acquired absence of ovaries, bilateral; Z92.21 Personal history of antineoplastic chemotherapy; Z92.3 Personal history of irradiation; K76.89 Other specified diseases of liver; K76.0 Fatty (change of) liver, not elsewhere classified
CPT/HCPCS: 36591; 80053; 84550; 85025; 86304; 99212; A4216; J1642; G0463

== ENCOUNTER → 2025-06-16 | Outpatient (CLI) | payer BC, SELFPAY ==
--- NOTE | 2025-06-16 10:00 | XR_ITS ---
Examination: CT chest with intravenous contrast CT abdomen with intravenous contrast CT pelvis with intravenous contrast CT chest without intravenous contrast CT abdomen without intravenous contrast CT pelvis without intervenous contrast 2-D coronal and sagittal reconstructions Time of exam: June 16, 2025, 1112 hours, comparison CT chest abdomen pelvis November 03, 2024 INDICATIONS: Diagnosis malignant neoplasm of uterus part unspecified, diagnosis 2022, restaging CTDI: vol (mGy) : 29.9 DLP: (mGycm): 1388 Technique: Multiple axial images of the chest, abdomen and pelvis with intravenous contrast, 3.0 mm slice thickness. Images obtained post intravenous injection Isovue 370 60 cc. 2-D sagittal and coronal reconstructions. Low dose protocols were performed. One or more of the following dose reduction techniques were used; automated exposure control, adjustment of the mA and/or KV according to patient size, use of iterative reconstruction technique. Findings: No thoracic aortic aneurysmal dilatation No pulmonary artery filling defects on this non CTA study Interval 19 mm right hilar lymphadenopathy Multiple bilateral pulmonary nodules again noted, progression of pulmonary nodular metastatic disease Pulmonary nodule right upper lobe 10 mm compared to 4 mm on November 03, 2024 Pulmonary nodules left upper lobe 5 mm compared to 3 mm on November 03, 2024 New cavitary lesion left upper lobe, 7 mm Pulmonary nodule right midlung 6 mm compared to 4 mm on November 03, 2024 New cavitary pulmonary nodule right lower lobe 9 mm Pulmonary nodule left lower lobe 10 mm compared to 8 mm on November 03, 2024 Pulmonary nodule lingular segment 13 mm compared to 4 mm on November 03, 2024 Stable liver cysts Cholelithiasis No pancreatic mass Spleen not enlarged No hydronephrosis No interval abdominal or pelvic lymphadenopathy The adrenal glands are normal No bowel obstruction Scattered colonic diverticulosis Absent uterus No pelvic mass Urinary bladder intact IMPRESSION: Progression of pulmonary nodular metastatic disease compared to November 03, 2024 No interval metastatic disease in the abdomen or pelvis
== END | disposition home or self-care (01) ==
LOC: SCAT 09:35
PROVIDERS: PCP Family Medicine; Referring Provider Internal Medicine Hematology & Oncology; Visit Provider Internal Medicine Hematology & Oncology
DX: C78.00 Secondary malignant neoplasm of unspecified lung (principal); C55 Malignant neoplasm of uterus, part unspecified
CPT/HCPCS: 71270; 74178; A4649; Q9967

== ENCOUNTER 2025-06-23 10:33 | Outpatient (RCR) | payer BC, SELFPAY ==
[2025-05-31 09:08] LABS: Basophils # (Auto) 0.0 Thou/mm3 (0.0-0.2); Basophils % (Auto) 1 % (0-2.5); Eosinophils # (Auto) 0.2 Thou/mm3 (0.0-0.5); Eosinophils % (Auto) 3 % (0-10); Hematocrit 35.3 % (36.0-46.0); Hemoglobin 11.8 g/dL (12.0-16.0); Immature Granulocytes Auto 0.01 Thou/mm3 (0.00-0.00); Lymphocytes # (Auto) 1.3 Thou/mm3 (1.0-4.8); Lymphocytes % (Auto) 26 % (10-50); Mean Corpuscular HGB Conc 33.4 g/dl (31.0-37.0); Mean Corpuscular Hemoglobin 29.9 pg (25.0-35.0); Mean Corpuscular Volume 89 fL (80-100); Monocytes # (Auto) 0.4 Thou/mm3 (0.0-0.8); Monocytes % (Auto) 9 % (0-12); Neutrophils # (Auto) 3.0 Thou/mm3 (1.8-7.7); Neutrophils % (Auto) 61 % (37-80); Nucleated Red Blood Cell # 0.00 Thou/mm3 (0.00-0.00); Nucleated Red Blood Cell % 0 /100 WBC (0); Platelet Count 230 Thou/mm3 (140-440); RDW Standard Deviation 42.4 fL (36.4-46.3); Red Blood Count 3.95 Miln/mm3 (4.00-5.20); White Blood Count 5.0 Thou/mm3 (3.6-11.0)
[2025-05-31 09:17] LABS: Alanine Aminotransferase 20 U/L (10-49); Albumin, Serum 4.0 gm/dL (3.4-4.8); Albumin/Globulin Ratio 1.4 (1.2-2.2); Alkaline Phosphatase 101 U/L (46-116); Anion Gap 10 (7-16); Aspartate Amino Transferase 17 U/L (0-34); BUN/Creatinine Ratio 21 Ratio (12-20); Bilirubin,Total 0.7 mg/dL (0.3-1.2); Blood Urea Nitrogen 17 mg/dL (9-23); Calcium 9.0 mg/dL (8.3-10.6); Calcium (Corrected) 9.0 mg/dL (8.5-10.1); Carbon Dioxide 24.3 mMol/L (20.0-31.0); Chloride 109 mMol/L (98-107); Creatinine (Component) 0.8 mg/dL (0.6-1.3); Globulin 2.8 gm/dL (2.3-3.5); Glucose 115 mg/dL (74-106); Osmolality,Calculated 287 (275-295); Potassium 3.5 mMol/L (3.4-5.1); Sodium 143 mMol/L (136-145); Total Protein 6.8 gm/dL (5.7-8.2); eGFR > 60 See Note
[2025-05-31 09:34] LABS: CA 125 11.0 U/mL (<30.2)
--- NOTE | 2025-06-05 23:20 | CTCFLWUP_ITS ---
Patient: TON SCHNEIDER : 1965 Page 5 of 7 FOLLOW UP NOTE DATE OF SERVICE: 05/31/2025 NAME: TON SCHNEIDER ACCOUNT: [id number] : 1965 AGE: 60 INTERVAL HISTORY: Ton SCHNEIDER, a female with uterine cancer diagnosed July 2023, presented for follow-up of PET scan results. Her history included stage 1 cancer with complete surgical resection via hysterectomy. Current imaging revealed metastatic disease with multiple lung nodules showing mildly increased activity (largest 11mm) and two avid alfonso lesions in left pelvic sidewalls. Biopsy is negative for malignancy . lung nodules are too small to biopsy . Patient s naterra is positive . will repeat scan and biopsy lung noduels if they grow. Patient do not want to repeat biopsy of the pelvic mass. [place] patient that she likely have cancer as naterra is showing increase in her tumor marker . Chief Complaint Follow-up for malignant neoplasm of the uterus and metastatic disease, review of PET scan results History of Present Illness Ton SCHNEIDER is a patient with a history of malignant neoplasm of the uterus, diagnosed in July 2023. She presents for follow-up after recent imaging studies to evaluate for metastatic disease. The patient's initial cancer was stage one, and everything was removed at that time. However, recent imaging studies have raised concerns about potential metastatic disease. A CT scan in October showed 29-millimeter nodules, which prompted a PET scan. The PET scan revealed multiple nodules in both lungs demonstrating mildly increased activity. The largest nodule in the right lung measures 11 millimeters, located in the superior right lower lobe adjacent to the major fissure. Additionally, there are two avid alfonso lesions in the left pelvic sidewalls, consistent with metastasis. 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 pMMR, HER2 overexpressed 3+, ER/IL negative S/p hysterectomy and bilateral salpingo-oophorectomy (09/03/2023) Status post 6 cycles of Taxol and carboplatin chemotherapy. Unfortunately Taxol was not given for last 2 cycles due to peripheral neuropathy (11/26/2023 - 03/11/2024). Ms. 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 pMMR, HER2 overexpressed 3+, ER/IL negative S/p hysterectomy and bilateral salpingo-oophorectomy (09/03/2023) TREATMENT HISTORY: Care?Plan Start?Date Cycle Day Intent CARBOplatin?AUC?6;?PACLitaxel?175 11/26/2023 1 21 Curative?(adjuvant) HISTORY OF PRESENT ILLNESS: Ms. Schneider is a 60-year-old Citizen Of [place]-speaking female with following oncology history. 06/11/2023: Ms. Schneider had pelvic ultrasound done to evaluate the cause for postmenopausal bleeding 08/08/2023: Ms. Schneider had endometrial biopsy? 08/28/2023: CT scan of the chest abdomen and pelvis with IV contrast 09/03/2023: Ms. Schneider had total hysterectomy and bilateral salpingo-oophorectomy 10/20/2023: PET/CT scan 11/26/2023?03/11/2024: The patient had 6 cycles of adjuvant chemotherapy. For first 4 cycles she had Taxol and carboplatin. Taxol was not given for last 2 cycles due to peripheral neuropathy.. 03/29/2024 - 05/03/2024: Ms. Schneider received 5000 cGy of radiation therapy to the pelvis. 04/09/2024: CA125 is 12.0 05/10/2024: CT scan of the chest with contrast OTHER MEDICAL HISTORY/CONDITIONS: UTRINE?CA???COVID HYSTRECTOMY???ROTATOR?CUFF FAMILY HISTORY: Mother:?COLON?-?dx?age?74 Sibling:?BREAST?SISTER SOCIAL HISTORY: Occupational?History:?[employer]. Education?Level:?College Graduate, 2 year degree Marital?Status:? Tobacco?Pack?per?Day:?0 ETOH?Use:?DENIES Drug?Note:?DENIES Social History Note:?LIVES WITH DAUGHTER [place] ATTENDANT HISTORY: Menarche?-?Age:?10 Menopause:?10?YRS?AGO Hormone?Use:?DENIES :?3 Live?Births:?1 Age?1st?:?19 Gynecological?Note:?2?MISCARRIAGE MEDICATIONS: 1. IBU - 800 mg 1 tab As directed Medications Last Reconciled by Sita Stahl MD on 06/01/2025 ALLERGIES: No Known Drug Allergies REVIEW OF SYSTEMS: A complete 14-point review of systems was performed and is negative except as noted in interval history. PHYSICAL EXAMINATION: VITAL SIGNS: Temperature?96.3, B/P?146/80, Oxygen?Saturation?94% Weight?167?lbs PAIN: 0 - No pain ECOG Performance Status: None GENERAL APPEARANCE: Appears well, in no apparent distress, appropriately interactive. HEENT: Normocephalic, no temporal wasting, normal conjunctiva, no scleral icterus, normal hearing, lips without lesions, neck normal range of motion. CARDIOVASCULAR: Not assessed. PULMONARY: Normal respiratory effort, no respiratory distress or use of accessory muscles, speaking in full sentences, no tachypnea. EXTREMITIES: No pedal edema or cyanosis. SKIN: Normal skin appearance. NEUROLOGIC: Alert and oriented x4. PSHYCHIATRIC: Appropriate affect, mood normal, behavior normal, intact thought and speech. LABORATORY DATA: I have personally reviewed and interpreted each of the patient?s relevant lab tests, abnormal findings are below: Date 03/30/25 05/31/25 ??WHITE?BLOOD?COUNT?(Thou/mm3) ? 5.0 ??RED?BLOOD?COUNT?(Miln/mm3) ? 3.95?L ??HEMOGLOBIN?(gm/dl) ? 11.8?L ??HEMATOCRIT?(%) ? 35.3?L ??PLATELET?COUNT?(Thou/mm3) ? 230 ??NEUTROPHILS?%,?AUTO?(%) ? 61 ??LYMPH?%,?AUTO?(%) ? 26 ??NEUTROPHILS,?AUTO?(Thou/mm3) ? 3.0 ??GLUCOSE,RANDOM?(mg/dL) 108?H 115?H ??BLOOD?UREA?NITROGEN?(mg/dL) 19 17 ??CREATININE?(mg/dL) 1.10 0.80 ??SODIUM?(mmol/L) 142 143 ??POTASSIUM?(mmol/L) 3.7 3.5 ??CHLORIDE?(mmol/L) 106 109?H ??CrCl?(CandG)?(ml/min) 53.09 72.24 ??AST/SGOT?(Unit/L) 20 17 ??ALT/SGPT?(Unit/L) 21 20 ??ALKALINE?PHOSPHATASE?(Unit/L) 97 101 ??BILIRUBIN,?TOTAL?(mg/dL) 1.3?H 0.7 ??PROTEIN?TOTAL?(gm/dl) 6.8 6.8 ??ALBUMIN,?SERUM?(gm/dl) 4.2 4.0 ??GLOBULIN?(gm/dl) 2.6 2.8 ??ALBUMIN/GLOBULIN?RATIO 1.6 1.4 ??CALCIUM,?SERUM?(mg/dL) 9.0 9.0 ??CALCIUM?SERUM?(CORRECTED)?(mg/dL) 9.0 9.0 ??CA?125?(O*)?(Unit/mL) ? 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 Unfortunately Taxol was not given for last 2 cycles due to peripheral neuropathy (11/26/2023 - 03/11/2024). Ms. Schneider had 5000 cGy radiation to the pelvis (03/29/2024 - 05/03/2024) Previous CT scans done on 08/28/2023 showed multiple small pulmonary nodules CT scan on 05/10/2024 shows bilateral lungs clear and showed fatty liver infiltration and benign hepatic cyst but no cancer seen 12/03/2024 shows metastatic disease with multiple noncalcified nodule in both lung with mildly increased metabolic activity' There are 2 F06 avid alfonso lesions in the left pelvic sidewall as described above, consistent with metastases. ? There is an indeterminate lymph node in the right upper neck the level of 02. Could be reactive but metastatic disease here cannot be excluded. ? Incidental ?ndings observed on the CT images. detailed in the body of the report. Cancer cancer NECK: There is a 6 mm lymph node right upper neck (image 23) located at the level of C2 area demonstrates mildly increased metabolic activity. SUV measuring 5.7. No other identi?ed in the neck. The salivary and thyroid glands are normal. The cervical airway is normal. CHEST: There are negative numerous noncalci?ed nodules in both lungs. The largest nodule in the right and measures 11 mm. located in the superior segment right lower lobe adjacent to the major ?ssure. The largest nodule in the left lung is located in the left lower lobe and measures 4 mm. SUV values are 4 and 4.1 respectively. There is an 11 mm nodule with central cavity in the medial left lung base (image 96). SUV here is 6.1. Cardiac size is normal. There is a right IJ approach port catheter with the tip in the upper right atrium. No mediastinal or hilar lymphadenopathy. There is also no axillary or central cervical lymphadenopathy. ABDOMENIPELVIS: No hypermetabolic focus is identi?ed in the abdomen. There are 2 mildly hypermetabolic alfonso lesions in the lower left pelvic sidewall (image 199). The largest lymph node measures 15 mm. Maximal SUV is 6. There is a lelt inguinal lymph node measuring 9 mm, demonstrating increased metabolic activity. SUV here is 6.3. There are several cysts in the liver, with the largest one located in the right hepatic lobe and measures 5 cm. ORDERS: Order # Description [id number] Refer To: + To evaluate the lymph nodes which are larger will get MRI of the pelvis and abdomen 03/23/2025 biopsy of the left iliac lymph node is negative at [facility] as lymph node was too small to biopsy Patient's naterra on 04/30/2025 has mildly increased to 2.67 from 2.24 Will refer patient to tertiary level center to evaluate and management as I am unable to get a biopsy as lesions are very small RETURN TO CLINIC: I reviewed the diagnosis, prognosis, and recommended treatment/procedure options with the patient (and/or their legal personal banking representative), including the potential benefits, risks, side effects and alternative therapies. We also discussed the option of no treatment and the possibility of clinical trial participation, if applicable. All questions were addressed, and they demonstrated understanding. They provided informed consent to proceed with the proposed plan of care. BILLING AND COMPLIANCE: I reviewed external records from providers outside my specialty as summarized above. I spent a total of 50 minutes on this patient?s care on the day of their visit excluding time spent related to any billed procedures. This time includes time spent with the patient as well as time spent documenting in the medical record, reviewing patients records and tests, obtaining history, placing orders, communicating with other healthcare professionals, counseling the patient, family or caregiver, and/or care coordination for the diagnoses above. Electronically Signed by: {Object.Sanct_ID*PnP.NameFL@M}, {Object.Sanct_ID*PnP.Suffix@U} D: {Object.Sanct_Date} T: {Object.Sanct_Time} CC: PCP: No Primary/family, Physician Referring: Evgeny Conner This document was completed utilizing speech recognition software. Grammatical errors, random word insertions, pronoun errors, and incomplete sentences are an occasional consequence of this system due to software limitations, ambient noise, and hardware issues. Any formal questions or concerns about the content, text or information contained within the body of this dictation should be directly addressed to the provider for clarification.
--- NOTE | 2025-07-10 20:57 | CTCFLWUP_ITS ---
Patient: TON SCHNEIDER : 1965 Page 5 of 8 FOLLOW UP NOTE DATE OF SERVICE: 06/23/2025 NAME: TON SCHNEIDER ACCOUNT: [id number] : 1965 AGE: 60 INTERVAL HISTORY: Ton SCHNEIDER, a female with uterine cancer diagnosed July 2023, presented for follow-up of CT scan results. Her history included stage 1 cancer with complete surgical resection via hysterectomy. Current imaging revealed metastatic disease with multiple lung nodules and nodules have i ncreased in size since the last PET CT scan in November 2024. Patient was referred to tertiary care center and have an upcoming appointment. Patient want to see the specialist before proceeding with the biopsy. Patient advised to return to clinic after she has completed her appointment at [facility]. Patient want to do biopsy and further imaging only at [place]. Chief Complaint Follow-up for malignant neoplasm of the uterus and metastatic disease, review of CT scan results History of Present Illness Ton SCHNEIDER is a patient with a history of malignant neoplasm of the uterus, diagnosed in July 2023. She presents for follow-up after recent imaging studies to evaluate for metastatic disease. The patient's initial cancer was stage one, and everything was removed at that time. However, recent imaging studies have raised concerns about potential metastatic disease. Patient's PET CT scan was concerning but patient wanted to repeat her imaging and CT scan in May shows worsening of the size of the pulmonary nodules. Pelvic mass biopsied and s negative Medical History - Malignant neoplasm of the uterus diagnosed in July 2023 - Stage one cancer, with complete removal Surgical History - Total hysterectomy in July 2023 for stage one uterine cancer ONCOLOGY HISTORY:?[facility] Hx? 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 Unfortunately Taxol was not given for last 2 cycles due to peripheral neuropathy (11/26/2023 - 03/11/2024). Ms. 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 Schneider is a 60-year-old Lebanese-speaking female with following oncology history. 06/11/2023: Ms. Schneider had pelvic ultrasound done to evaluate the cause for postmenopausal bleeding 08/08/2023: Ms. Schneider had endometrial biopsy? 08/28/2023: CT scan of the chest abdomen and pelvis with IV contrast 09/03/2023: Ms. Schneider had total hysterectomy and bilateral salpingo-oophorectomy 10/20/2023: PET/CT scan 11/26/2023?03/11/2024: The patient had 6 cycles of adjuvant chemotherapy. For first 4 cycles she had Taxol and carboplatin. Taxol was not given for last 2 cycles due to peripheral neuropathy.. 03/29/2024 - 05/03/2024: Ms. Schneider received 5000 cGy of radiation therapy to the pelvis. 04/09/2024: CA125 is 12.0 05/10/2024: CT scan of the chest with contrast OTHER MEDICAL HISTORY/CONDITIONS: UTRINE?CA???COVID HYSTRECTOMY???ROTATOR?CUFF FAMILY HISTORY: Mother:?COLON?-?dx?age?74 Sibling:?BREAST?SISTER SOCIAL HISTORY: Occupational?History:?[employer]. Education?Level:?College Graduate, 2 year degree Marital?Status:? 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 IBU - 800 mg 1 tab As directed?[facility] Meds? Medications Last Reconciled by Sita Stahl MD on 06/23/2025 ALLERGIES: No Known Drug Allergies REVIEW OF SYSTEMS: A complete 14-point review of systems was performed and is negative except as noted in interval history. PHYSICAL EXAMINATION:?[facility] PE? VITAL SIGNS: Temperature?96.9, B/P?138/80, Oxygen?Saturation?96% Weight?160?lbs (Change?since?06/01/25:?-5?lbs) PAIN: 0 - No pain ECOG Performance Status: 0 - Asymptomatic and fully active GENERAL APPEARANCE: Appears well, in no apparent distress, appropriately interactive. HEENT: Normocephalic, no temporal wasting, normal conjunctiva, no scleral icterus, normal hearing, lips without lesions, neck normal range of motion. CARDIOVASCULAR: Not assessed. PULMONARY: Normal respiratory effort, no respiratory distress or use of accessory muscles, speaking in full sentences, no tachypnea. EXTREMITIES: No pedal edema or cyanosis. SKIN: Normal skin appearance. NEUROLOGIC: Alert and oriented x4. PSHYCHIATRIC: Appropriate affect, mood normal, behavior normal, intact thought and speech. LABORATORY DATA: I have personally reviewed and interpreted each of the patient?s relevant lab tests, abnormal findings are below: Date 03/30/25 05/31/25 ??WHITE?BLOOD?COUNT?(Thou/mm3) ? 5.0 ??RED?BLOOD?COUNT?(Miln/mm3) ? 3.95?L ??HEMOGLOBIN?(gm/dl) ? 11.8?L ??HEMATOCRIT?(%) ? 35.3?L ??PLATELET?COUNT?(Thou/mm3) ? 230 ??NEUTROPHILS?%,?AUTO?(%) ? 61 ??LYMPH?%,?AUTO?(%) ? 26 ??NEUTROPHILS,?AUTO?(Thou/mm3) ? 3.0 ??GLUCOSE,RANDOM?(mg/dL) 108?H 115?H ??BLOOD?UREA?NITROGEN?(mg/dL) 19 17 ??CREATININE?(mg/dL) 1.10 0.80 ??SODIUM?(mmol/L) 142 143 ??POTASSIUM?(mmol/L) 3.7 3.5 ??CHLORIDE?(mmol/L) 106 109?H ??CrCl?(CandG)?(ml/min) 53.09 72.24 ??AST/SGOT?(Unit/L) 20 17 ??ALT/SGPT?(Unit/L) 21 20 ??ALKALINE?PHOSPHATASE?(Unit/L) 97 101 ??BILIRUBIN,?TOTAL?(mg/dL) 1.3?H 0.7 ??PROTEIN?TOTAL?(gm/dl) 6.8 6.8 ??ALBUMIN,?SERUM?(gm/dl) 4.2 4.0 ??GLOBULIN?(gm/dl) 2.6 2.8 ??ALBUMIN/GLOBULIN?RATIO 1.6 1.4 ??CALCIUM,?SERUM?(mg/dL) 9.0 9.0 ??CALCIUM?SERUM?(CORRECTED)?(mg/dL) 9.0 9.0 ??CA?125?(O*)?(Unit/mL) ? 11.0 ASSESSMENT/PLAN:?Wei Conner Assessment/Plan? 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 Unfortunately Taxol was not given for last 2 cycles due to peripheral neuropathy (11/26/2023 - 03/11/2024). Ms. Schneider had 5000 cGy radiation to the pelvis (03/29/2024 - 05/03/2024) Previous CT scans done on 08/28/2023 showed multiple small pulmonary nodules CT scan on 05/10/2024 shows bilateral lungs clear and showed fatty liver infiltration and benign hepatic cyst but no cancer seen 12/03/2024 shows metastatic disease with multiple noncalcified nodule in both lung with mildly increased metabolic activity' There are 2 F06 avid alfonso lesions in the left pelvic sidewall as described above, consistent with metastases. ? There is an indeterminate lymph node in the right upper neck the level of 02. Could be reactive but metastatic disease here cannot be excluded. ? Incidental ?ndings observed on the CT images. detailed in the body of the report. Cancer cancer NECK: There is a 6 mm lymph node right upper neck (image 23) located at the level of C2 area demonstrates mildly increased metabolic activity. SUV measuring 5.7. No other identi?ed in the neck. The salivary and thyroid glands are normal. The cervical airway is normal. CHEST: There are negative numerous noncalci?ed nodules in both lungs. The largest nodule in the right and measures 11 mm. located in the superior segment right lower lobe adjacent to the major ?ssure. The largest nodule in the left lung is located in the left lower lobe and measures 4 mm. SUV values are 4 and 4.1 respectively. There is an 11 mm nodule with central cavity in the medial left lung base (image 96). SUV here is 6.1. Cardiac size is normal. There is a right IJ approach port catheter with the tip in the upper right atrium. No mediastinal or hilar lymphadenopathy. There is also no axillary or central cervical lymphadenopathy. ABDOMENIPELVIS: No hypermetabolic focus is identi?ed in the abdomen. There are 2 mildly hypermetabolic alfonso lesions in the lower left pelvic sidewall (image 199). The largest lymph node measures 15 mm. Maximal SUV is 6. There is a lelt inguinal lymph node measuring 9 mm, demonstrating increased metabolic activity. SUV here is 6.3. There are several cysts in the liver, with the largest one located in the right hepatic lobe and measures [address] scan and refer to tertiary center gynecology oncology for evaluation and management Patient do not want to get a biopsy here Will refer to interventional radiology for biopsy of the pulmonary nodules Please send patient to the facility where she will help to get the biopsy done will also get an MRI abdomen and pelvis to see the any pelvic mass ORDERS: Order # Description [id number] Refer To: + [id number] MRI + Abdomen and Pelvis [id number] Follow Up 4 Week RETURN TO CLINIC: I reviewed the diagnosis, prognosis, and recommended treatment/procedure options with the patient (and/or their legal sales representative publications), including the potential benefits, risks, side effects and alternative therapies. We also discussed the option of no treatment and the possibility of clinical trial participation, if applicable. All questions were addressed, and they demonstrated understanding. They provided informed consent to proceed with the proposed plan of care. BILLING AND COMPLIANCE: I reviewed external records from providers outside my specialty as summarized above. I spent a total of 50 minutes on this patient?s care on the day of their visit excluding time spent related to any billed procedures. This time includes time spent with the patient as well as time spent documenting in the medical record, reviewing patients records and tests, obtaining history, placing orders, communicating with other healthcare professionals, counseling the patient, family or caregiver, and/or care coordination for the diagnoses above. Electronically Signed by: Evgeny Conner MD T: 8:55 PM CC: PCP: No Primary/family, Physician Referring: Evgeny Conner This document was completed utilizing speech recognition software. Grammatical errors, random word insertions, pronoun errors, and incomplete sentences are an occasional consequence of this system due to software limitations, ambient noise, and hardware issues. Any formal questions or concerns about the content, text or information contained within the body of this dictation should be directly addressed to the provider for clarification.
== END 2025-06-24 23:59 | disposition home or self-care (01) ==
LOC: SCTC 10:33
PROVIDERS: Referring Provider Internal Medicine Hematology & Oncology; Visit Provider Internal Medicine Hematology & Oncology
DX: C54.1 Malignant neoplasm of endometrium (principal); Z90.710 Acquired absence of both cervix and uterus; Z90.722 Acquired absence of ovaries, bilateral; Z92.3 Personal history of irradiation; Z92.21 Personal history of antineoplastic chemotherapy; K76.0 Fatty (change of) liver, not elsewhere classified; R91.8 Other nonspecific abnormal finding of lung field; K76.89 Other specified diseases of liver
CPT/HCPCS: 36591; 80053; 85025; 86304; 99212; A4216; J1642; G0463

== ENCOUNTER 2025-07-12 13:52 | Emergency (ER) | payer BC, SELFPAY ==
[2025-07-12 14:14] VITALS: BP 159/81; PULSE 75; RESP 18; TEMP 37.1; O2SAT 94; BMI 29.2
--- NOTE | 2025-07-12 14:28 | XR_ITS ---
Examination: CT brain head without contrast. 2-D sagittal coronal reconstructions Date and time of exam: July 12, 2025, 1534 hours INDICATIONS: Onset generalized headache beginning this morning CTDI: vol (mGy): 49 DLP: (mGycm): 898 Technique: Multiple CT axial sections of the brain have been obtained, 5 mm slice thickness. Contrast has not been administered. 2-D sagittal, coronal reconstructions have been obtained Low dose protocols were performed. One or more of the following dose reduction techniques were used; automated exposure control, adjustment of the mA and/or KV according to patient size, use of iterative reconstruction technique. 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
[2025-07-12] MEDS: ACETAMINOPHEN 325 MG TABLET 650 MG PO (14:56)
--- NOTE | 2025-07-12 15:00 | PD.EDHA ---
ED Headache RME/HPI General Chief Complaint: Eye Problems Stated Complaint: VISION FLASHING, PRESSURE BEHIND L) EYE Time Seen by Provider: 07/12/25 14:36 Arrival date/time: 07/12/25 13:52 RME / HPI RME / HPI Narrative: CC: flashing lights & headache Patient is a 60-year-old female with a past medical history of uterine cancer status post hysterectomy concern for metastatic spread to the lungs following oncology, Dr. Conner, who presented to the emergency room with a chief complaint of headache and visual flashing lights. Patient stated headache began approximately at 1:40 PM of 07/12/2025 with headache radiating across frontal region. Denied any loss of consciousness or trauma. Denied any blurry vision. No previous history of migraines. Patient recently visited with oncology there is concern for relapse of cancer. Patient is scheduled to have a follow-up with oncology at [place] July 30, 2025. Related Data Allergies Allergy/AdvReac Type Severity Reaction Status Date / Time No Known Allergies Allergy Verified 07/12/25 13:55 Review of Systems Review of Systems Narrative Review of Systems: General appearance: NO weight change, NO fatigue, NO weakness, NO fever, NO chills, NO night sweats, No cough Skin: NO rash, NO itching, NO sores, NO moles HEENT: NO Trauma, NO nausea, NO vomiting, Yes visual changes-flashing lights, NO blurry vision, NO double vision, NO tinnitus, NO vertigo, NO ear discharge, NO rhinorrhea, NO stuffiness, NO sneezing, NO allergy, NO epistaxis. NO Hoarseness, NO sore throat, NO swollen neck, yes headache. Cardiac: NO Palpitations, NO dyspnea on exertion, NO orthopnea, NO paroxysmal nocturnal dyspnea, NO edema Respiratory: NO Shortness of Breath, NO Wheezing, NO Cough, NO Sputum, NO hemoptysis GI:NO appetite, NO nausea, NO vomiting, NO dysphagia, NO changes in bowel frequency, NO stool color, NO diarrhea, NO constipation, NO hemetemesis, NO hemorrhoids, NO melena, NO hematechezia, NO abdominal pain, NO jaundice Renal: NO frequency, NO hesitancy, NO urgency, NO hematuria, NO nocturia, NO incontinence MSK: NO muscle weakness, NO gout, NO arthritis, NO muscle stiffness Neuro: NO headaches, NO tremors, NO weakness, NO paralysis, NO seizures, NO loss of consciousness, NO numbness. Hem: NO anemia, NO easy bruising/bleeding, NO petechiae, NO purpura Endo: NO heat/cold intolerance, NO excessive sweating, NO polyuria, NO polydipsia, NO polyphagia, NO thyroid problems, NO diabetes Pysch: NO mood, NO anxiety, NO depression ED Exam Narrative Physical exam: General Appearance: Alert & Oriented X3, well-nourished female who is lying in bed in no acute distress HEENT: Skull symmetrical and atraumatic. Conjunctivae pink and moist. Pupils equal, round, reactive to light and accommodation (PERRL). External ear without lesion or discharge. Straight, nares patient, mucosa pink, no discharge. Cardio: Normal Rate and Rhythm with S1 and S2 heart sounds. No murmurs or extra heart sounds auscultated. No bruits on carotid auscultation. No peripheral edema or cyanosis. Lungs: Symmetric with good expansion. Chest and back non-tender. Breath sounds vesicular without crackles, wheezing or rhonchi Abdomen: Non-tender, Non-distended, Normal Reactive Bowel Sounds Neuro: Alert, cooperative, oriented to person, place, and time. Speech clear. CN grossly intact. Upper motor strength 5/5 and Lower motor strength 5/5. Sensation intact. Course Quality Measures none Orders Category Date Time Status CT head/brain wo con Stat Exams 07/12/25 14:28 Completed CBC Stat Lab 07/12/25 14:44 Completed CMP [Comprehensive Metabolic Panel] Stat Lab 07/12/25 14:44 Completed Acetaminophen Tab [Tylenol Tab] Med 07/12/25 14:30 Discontinued 650 mg PO X1 ONE Vital Signs Vital signs: Vital Signs Temperature 98.8 F 07/12/25 14:14 Pulse Rate 75 07/12/25 14:14 Respiratory Rate 18 07/12/25 14:14 Blood Pressure 159/81 H 07/12/25 14:14 Pulse Oximetry (%) 94 L 07/12/25 14:14 Oxygen Delivery Method Room Air 07/12/25 14:14 Headache Patient data External records reviewed:: [facility] previous records Clinical information provided by:: patient Social determinants that could affect healthcare access:: none Patient has the following chronic illnesses:: Hx of Uterine Cancer How is presenting disease/condition affected by chronic disease/condition?: no chronic disease Evaluation data The following diagnostics were reviewed and interpreted by me:: lab results and radiology exam(s) Lab and/or radiology exams considered but not ordered:: None Interpretation Summary: Patient is a 60-year-old female with a past medical history of uterine cancer status post hysterectomy with concerns to mets to the lungs who is following Dr. Conner. CBC noted to have normocytic anemia and CMP within normal limits. CT head suspicious for right frontal parietal and right occipital cerebral masses recommending patient follow-up with a brain MRI. #Head #Conern for Mets to brain Medications / Prescriptions Medications or Prescriptions considered but not ordered:: None Medication administrations:: Medication Administration History Discontinued Medications Acetaminophen (Acetaminophen 325 Mg Tablet) 650 mg PO X1 ONE Stop: 07/12/25 14:31 Last Admin: 07/12/25 14:56 Dose: 650 mg Documented By: same as above Consultations Consultation(s) initiated? (list below): No Diagnosis Differential diagnosis headache: migraine, headache and sinusitis Most likely diagnosis given after review of the tests above:: Patient is a 60-year-old female with a past medical history of uterine cancer status post hysterectomy with concerns to mets to the lungs who is following Dr. Conner. CBC noted to have normocytic anemia and CMP within normal limits. CT head suspicious for right frontal parietal and right occipital cerebral masses recommending patient follow-up with a brain MRI. #Headache #Concern for Mets to brain - The patient's plan was discussed with attending Dr. Yady Pike MD PGY2 Internal Medicine Admission Indicated Admission indicated?: not indicated Admission Request Was there a request for admission?: No Disposition Plan Disposition Plan: Discharge Discharge Attestation Discharge Attestation: The patient and all family members were given an opportunity to ask questions and understood the discharge instructions. Discharge instructions specifically effects, indications for sooner follow up or return to the emergency department, and the expected course of current diagnosis. Patient condition: Stable Discharge Plan Plan Patient Disposition: HOME (Self Care) Patient condition on transfer: Stable Health Concerns: Instructions: -You have been diagnosed with headaches. CT head showed no brain bleed but there is concern for possible metastasis to the brain. Please follow up with brain MRI. -Please make an appointment with your oncologist, Dr. Conner, and discuss your case. -Please take Tylenol for headaches as needed but do not take more than 4,000 mg in one day. -Please follow up with your primary care provider within one week of discharge -If your symptoms worsen,please seek immediate medical attention and return to your nearest emergency room -If you do not have a primary care provider, you may follow up at the [facility] at [address] [place] [address] [address], [place] [address], Prescriptions/Referrals Referrals: Sita Hoffman MD [Primary Care Provider, Family Practice] - In 1 week Problem List Clinical Impression: Headache Patient/Caregiver Discharge Instructions Print Language: Azeri Stand Alone Forms: [facility] Award Info., Patient Portal Info Letter
[2025-07-12 15:12] LABS: Alanine Aminotransferase 17 U/L (10-49); Albumin, Serum 4.5 gm/dL (3.4-4.8); Albumin/Globulin Ratio 1.8 (1.2-2.2); Alkaline Phosphatase 96 U/L (46-116); Anion Gap 10 (7-16); Aspartate Amino Transferase 19 U/L (0-34); BUN/Creatinine Ratio 19 Ratio (12-20); Bilirubin,Total 1.0 mg/dL (0.3-1.2); Blood Urea Nitrogen 15 mg/dL (9-23); Calcium 9.6 mg/dL (8.3-10.6); Calcium (Corrected) 9.6 mg/dL (8.5-10.1); Carbon Dioxide 26.9 mMol/L (20.0-31.0); Chloride 107 mMol/L (98-107); Creatinine (Component) 0.8 mg/dL (0.6-1.3); Estimated Creatinine Clearance 73.4 mL/min (>60); Globulin 2.5 gm/dL (2.3-3.5); Glucose 118 mg/dL (74-106); Osmolality,Calculated 288 (275-295); Potassium 3.5 mMol/L (3.4-5.1); Sodium 144 mMol/L (136-145); Total Protein 7.0 gm/dL (5.7-8.2); eGFR > 60 See Note
[2025-07-12 15:20] LABS: Basophils # (Auto) 0.0 Thou/mm3 (0.0-0.2); Basophils % (Auto) 1 % (0-2.5); Eosinophils # (Auto) 0.1 Thou/mm3 (0.0-0.5); Eosinophils % (Auto) 2 % (0-10); Hematocrit 34.9 % (36.0-46.0); Hemoglobin 11.7 g/dL (12.0-16.0); Immature Granulocytes Auto 0.01 Thou/mm3 (0.00-0.00); Lymphocytes # (Auto) 1.3 Thou/mm3 (1.0-4.8); Lymphocytes % (Auto) 26 % (10-50); Mean Corpuscular HGB Conc 33.5 g/dl (31.0-37.0); Mean Corpuscular Hemoglobin 29.5 pg (25.0-35.0); Mean Corpuscular Volume 88 fL (80-100); Monocytes # (Auto) 0.4 Thou/mm3 (0.0-0.8); Monocytes % (Auto) 8 % (0-12); Neutrophils # (Auto) 3.0 Thou/mm3 (1.8-7.7); Neutrophils % (Auto) 63 % (37-80); Nucleated Red Blood Cell # 0.00 Thou/mm3 (0.00-0.00); Nucleated Red Blood Cell % 0 /100 WBC (0); Platelet Count 251 Thou/mm3 (140-440); RDW Standard Deviation 42.1 fL (36.4-46.3); Red Blood Count 3.96 Miln/mm3 (4.00-5.20); White Blood Count 4.8 Thou/mm3 (3.6-11.0)
== END 2025-07-12 17:26 | disposition home or self-care (01) ==
PROVIDERS: Emergency Provider Emergency Medicine; PCP Family Medicine
DX: R51.9 Headache, unspecified (principal)
CPT/HCPCS: 36415; 70450; 80053; 85025; 99283; A9270